=== PATIENT | male | born 1965 | race Caucasian/White ===

== ENCOUNTER 2025-10-21 09:49 | Outpatient (AMB) | payer OTHER, SELFPAY ==
--- NOTE | 2025-10-21 09:52 | MHC.OFFVIS ---
Intake Visit Reasons: last seen 2020 MS Allergies No Known Allergies Allergy (Verified 10/21/25 09:52) Medication List - Last Reconciled 10/21/25 by Damaris Mendoza CNP omeprazole 20 mg PO BID tadalafil 10 mg PO DAILY PRN HPI Comments Details: 59-year-old man with migraines and MS who returns after approximately four years (last seen in 08/2021) for follow up, during which time he was without neurological care. He reports first MS episode was transient vision loss which occurred about 17 years ago (around 2007). He has been without DMD for over 10+ years. He denies any new MS symptoms. He has torn left meniscus from playing baseball, currently not in PT or pursuing surgery as it is no longer painful in daily life. No falls. No new or increased weakness. No numbness or tingling. No cognitive symptoms. Energy level was okay. Sleep was okay. He was currently working in real estate. He reports getting a concussion while playing football on Thanksgiving and colliding with another player. No LOC. Initial symptoms included pain to right side of head and ocular migraine afterward that lasted about an hour. He has some mild headache and occasional dizziness that is improving. Prior to this, migraines were happening once every couple of months, but subsided significantly over the last 2-3 years, with only 1-2 occular migraines which he describes as visual disturbances. Previously, rare LUE sensation for a second. Has RRMS. He stopped Avonex in 09/2011, was asked to restart Avonex but never did. At some point, he was under the care of neurologist at [facility] and was treated with Copaxone, but developed rash (swelling to soles of feet after about a year of use), and was switched to Betaseron which he felt wiped with. He was prescribed Tecfidera, but never started medication. Has history of migraines with aura 2006. Family history of MS in one sister. [facility] Medical History (Updated 10/21/25 @ 10:58 by Damaris Mendoza CNP) Migraine Multiple sclerosis Family History (Updated 10/21/25 @ 10:52 by Damaris Mendoza CNP) Sister Multiple sclerosis Review of Systems Const Denies difficulty sleeping, Denies fatigue, Denies fever(s), Reports headache(s), Denies weakness, Denies weight gain and Denies weight loss Eyes Denies blurry vision, Denies diplopia, Denies dry eyes and Denies eye pain ENT Denies dysphagia, Denies dizziness, Denies otalgia, Reports headache(s) and Denies sore throat Card Denies chest pain, Denies syncope, Denies leg edema, Denies palpitations and Denies dyspnea Resp Denies cough and Denies dyspnea GI Denies abdominal pain, Denies constipation, Denies dysphagia, Denies diarrhea, Denies nausea and Denies vomiting Denies urinary frequency, Denies urinary incontinence and Denies urinary urgency Musc Denies abnormal gait, Denies back pain, Denies myalgias, Denies arthralgias, Denies limited range of motion, Denies muscle cramps, Denies numbness and Denies tingling Skin/Breast Denies pruritus, Denies lesions and Denies rash Neuro Denies abnormal gait, Denies dizziness, Denies syncope, Reports headache(s), Denies memory loss, Denies numbness, Denies restless legs, Denies seizure-like activity, Denies tingling, Denies tremor(s) and Denies weakness Psych Denies anxiety, Denies depression, Denies auditory hallucinations, Denies memory loss, Denies visual hallucinations, Denies homicidal ideation and Denies suicidal ideation Endo Denies cold intolerance, Denies fatigue, Denies heat intolerance and Denies palpitations Yon/Lymph Denies easy bleeding, Denies easy bruising and Denies lymphadenopathy Physical Exam Const Other: General Appearance:? normal, in no acute distress. Head:? normocephalic, atraumatic. Eyes:? sclera non-icteric, conjunctiva clear. Ears:? auditory canal clear, tympanic membrane intact, clear. Nose:? no lesions. Oral Cavity:? gums normal, mucosa moist, no lesions. Throat:? clear. Neck/Thyroid:? no cervical lymphadenopathy. Skin:? no rashes, no significant birthmarks. Heart:? S1, S2 normal, no murmurs. Lungs:? clear anteriorly and posteriorly. Chest:? no gross rib deformity, clear to auscultation. Extremities:? no edema. Psych:? alert, oriented, cognitive function intact, cooperative with exam. Neuro Other: Mental Status:?Normal attention, orientation, memory and affect.? Cranial Nerves:?Pupils are equal, round and reactive to light. External occular muscles are intact. Visual lai are full. Face is symmetrical. Facial sensations are normal. Tongue is midline. Palate elevates symmetrically. Shoulder shrugging is normal. Hearing to bedside conversation is normal. Motor Examination:?Normal muscle tone, bulk and strength,?Deep tendon reflexes are 2+,?Plantars are flexor.? Sensory Exam:?....? Coordination:?No ataxia,?no titubation.? Gait Exam: Within normal limits. Cerebellar Signs:?Ytowdw-tl-sffh and rknz-vc-hstw is normal.? Extrapyramidal System:?No tremor, rigidity with normal facial expressions.? Pronator Drift:?Not present.? Involuntary Movements:?No tremors seen.? Speech:?Normal.? Results Reviewed Results Reviewed: 12/09/15 MRI brain shows no change from 2013. 09/19/20 MRI brain shows no change except for 1 additional lesion in left occipital periventricular white matter. Assessment & Plan Assessment & Plan (1) Multiple sclerosis: Code(s): G35.D - Multiple sclerosis, unspecified Category: Medical Plan: Patient was informed and verbally consented to the use of an ambient scribe for clinic note documentation during this visit. 59-year-old man with long history of multiple sclerosis who returns to office after approximately four years. He denies any new MS symptoms during that time, and has been without disease-modifying therapy for over 10 years. Given it has been about 5 years since the last MRI, a new brain MRI with contrast will be ordered to monitor for subclinical disease activity. The results will be compared to the prior scan, which showed only one new lesion since 2016. Depending on the findings, initiating a disease-modifying therapy may be considered. Options discussed included Tecfidera (oral), Kesimpta (monthly injection), and IV infusions every six months. Follow up after MRI or sooner as needed. (2) Migraine with aura: Code(s): G43.109 - Migraine with aura, not intractable, without status migrainosus Category: Medical Qualifiers: Status migrainosus presence: without status migrainosus Intractability: not intractable Qualified Code(s): G43.109 - Migraine with aura, not intractable, without status migrainosus Plan: Discussed option for as needed medication, declining at this time as migraines as infrequent and not significantly bothersome. (3) Migraine equivalent: Code(s): G43.109 - Migraine with aura, not intractable, without status migrainosus Category: Medical (4) Concussion: Code(s): S06.0XAA - Concussion with loss of consciousness status unknown, initial encounter Category: Medical Qualifiers: Encounter type: initial encounter Loss of consciousness presence/duration: without LOC Qualified Code(s): S06.0X0A - Concussion without loss of consciousness, initial encounter Plan: Symptoms are consistent with concussion. The plan includes cognitive and physical rest. Advised to avoid screens and bright lights, stay hydrated, and refrain from physical activities that provoke symptoms like headache and dizziness. Symptoms are expected to slowly resolve over a couple of weeks. He was advised to contact office/follow up sooner for new or worsening symptoms. Plan Meds tried: Avonex (stopped in 09/2011), copaxone (rash), betaseron (fatigue) Coding Level of Care Code New Pt Level 4 (99473) Diagnoses Multiple sclerosis G35.D Migraine with aura and without status migrainosus, not intractable G43.109 Status migrainosus presence: without status migrainosus Intractability: not intractable Migraine equivalent G43.109 Concussion without loss of consciousness, initial encounter S06.0X0A Encounter type: initial encounter Loss of consciousness presence/duration: without LOC
--- OUTSIDE RECORDS SUMMARY | 2025-10-21 11:47 | XMS_ITS | Clinical Summary ---
Author Organization [address] [facility] Address [address] [place] [address] Phone Care Team Providers Care Home Child Care Provider Name Role Phone Evelyn Bradford MD Primary Care Provider Allergies Active Allergy Reactions Criticality Noted Date Comments Glatiramer 06/21/2025 Medications omeprazole (PriLOSEC) [address] capsule Take 1 capsule (20 mg total) by mouth 2 (two) times a day. 06/13/2025 Active tadalafiL (CIALIS) 10 mg tablet Take 1 tablet (10 mg total) by mouth 1 (one) time each day if needed for erectile dysfunction. Active Medical History Medical History Date Comments Multiple sclerosis Acid reflux Social History Tobacco Use Types Packs/Day Years Used Date Smoking Tobacco: Never Assessed Sex and Gender Information Value Date Recorded Sex Assigned at Not on file Legal Sex Male 10:07 AM EST Gender Identity Not on file Sexual Orientation Not on file Obstetrics History Plan of Treatment Health Maintenance Due Date Last Done Comments Colorectal Cancer Screening: Colonoscopy 1966 Hepatitis B Vaccines (1 of 3 - 19+ 3-dose series) 1985 Pneumococcal Vaccine: 50+ Years (1 of 1 - PCV) 2016 Zoster Vaccines (1 of 2) 2016 DTaP,Tdap,and Td Vaccines (3 - Td or Tdap) 10/22/2018 10/22/2008, 12/12/2000 Depression Screening 11/21/2024 Cholesterol Screening (Lipid Panel) 04/17/2025 HIV Screening 04/17/2025 Hepatitis C Screening 04/17/2025 Social Influencers of Health Screening 04/17/2025 COVID-19 Vaccine (3 - 2024-2 6 season) 2025 02/21/2021, 01/31/2021 Influenza Vaccine (#1) 2025 5, 08/20/2011 RSV Immunization Adult Patients (1 - 1-dose 75+ series) 2041 HIB Vaccines Aged Out No longer eligi ble based on patient's age to complete this topic HPV Vaccines Aged Out No longer eligi ble based on patient's age to complete this topic Hepatitis A Vaccines Aged Out No long er eligible based on patient's age to complete this topic IPV Vaccines Aged Out No longer eligi ble based on patient's age to complete this topic MMR Vaccines Aged Out No longer eligi ble based on patient's age to complete this topic Meningococcal ACWY Vaccine Aged Out N o longer eligible based on patient's age to complete this topic Meningococcal B Vaccine Aged Out No l onger eligible based on patient's age to complete this topic RSV Immunization Patients Under 20 months Aged Out No longer eligible b ased on patient's age to complete this topic Varicella Vaccines Aged Out No longer eligible based on patient's [place] [id number] [facility] Care Teams Home Child Care Provider Relationship Specialty Start Date End Date Evelyn Bradford MD [address] [place] [id number] PCP - General Internal Medicine 04/17/25
== END 2025-10-21 10:20 | disposition home or self-care (01) ==
LOC: HO.HSM 09:50
PROVIDERS: Visit Provider Registered Nurse
DX: G35.D Multiple sclerosis, unspecified (principal); G43.109 Migraine with aura, not intractable, without status migrainosus; S06.0X0A Concussion without loss of consciousness, initial encounter
CPT/HCPCS: 99204